=== PATIENT | male | born 1960 | race Caucasian/White ===

== ENCOUNTER → 2020-11-07 | Day surgery (SDC) | payer OTHER ==
[~2020-11-07] MED LIST: ACETAMINOPHEN325 MG PO; CIPRO500 MG PO; COLACE CLEAR50 MG PO; CORTEF10 MG PO; DAILY MULTIPLE1 EAC1 PO; FLOMAX0.4 MG PO; FLORASTOR250 MG PO; INVANZ 1GM1 GM/VIAL IJ; IPRAT-ALBUT 0.5-3 ML INH; NORCO 5-325 TA1 EACH PO; PLAVIX75 MG PO; PROAMATINE5 MG PO; REGLAN5 MG PO; ZOFRAN4 M1 PO
[2020-11-07 08:02] LABS: HCT 47.5 % (42.0-52.0); HGB 15.4 g/dl (13.2-18.0); MCH 28.1 pg (25.0-31.0); MCHC 32.4 g/dL (32.0-36.0); MCV 86.7 fL (78.0-100.0); RBC 5.48 M/uL (4.70-6.00); RDW 17.2 % (11.5-14.0); WBC 7.3 K/uL (4.0-10.5)
[2020-11-07 08:17] LABS: BUN/CREAT RATIO (CALC) 20.9 RATIO; CREATININE 0.86 mg/dL (0.67-1.17); POTASSIUM 3.9 mmol/L (3.5-5.1)
== END | disposition home or self-care (01) ==
LOC: FAS 06:38
PROVIDERS: Surgery
DX: K94.23 Gastrostomy malfunction (principal); J44.9 Chronic obstructive pulmonary disease, unspecified; Z98.890 Other specified postprocedural states; Z95.0 Presence of cardiac pacemaker; Z20.822 Contact with and (suspected) exposure to COVID-19
CPT/HCPCS: 36415; 80048; J2250; J2704; J7120

== ENCOUNTER 2022-04-29 08:33 | Emergency (ER) | payer OTHER | END 2022-04-29 14:05 | disposition home or self-care (01) | LOC: FER 08:33 | DX: M54.50 Low back pain, unspecified (principal); M25.551 Pain in right hip; W01.0XXA Fall on same level from slipping, tripping and stumbling without subsequent striking against object, initial encounter; Y92.009 Unspecified place in unspecified non-institutional (private) residence as the place of occurrence of the external cause | CPT/HCPCS: 72100; 73522; J7030 ==